=== PATIENT | female | born 1940 | race American Indian/Alaskan Native ===

== ENCOUNTER 2019-02-15 19:31 | Emergency (ER) | payer MEDICARE ==
[2019-02-15] MEDS ORDERED: GEODON IM ONE ×3 (21:14→21:31)
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
[2019-02-15 21:58] LABS: Basophils # (Auto) 0.1 K/mm3 (0.0-0.1); Eosinophils % (Auto) 0.4 % (0.0-4.3); Hematocrit 36.5 % (30.3-42.9); Hemoglobin 11.9 gm/dl (10.1-14.3); Lymphocytes # (Auto) 2.5 K/mm3 (1.2-5.4); Lymphocytes % (Auto) 23.8 % (13.4-35.0); Mean Corpuscular HGB Conc 33 % (30-34); Mean Corpuscular Volume 96 fl (79-97); Monocytes # (Auto) 0.5 K/mm3 (0.0-0.8); Monocytes % (Auto) 4.8 % (0.0-7.3); Platelet Count 217 K/mm3 (140-440); Red Blood Count 3.82 M/mm3 (3.65-5.03); Red Cell Distribution Width 15.9 % (13.2-15.2)
[2019-02-15 22:14] LABS: Alanine Aminotransferase 10 units/L (7-56); Albumin 4.1 g/dL (3.9-5); BUN/Creatinine Ratio 14; Blood Urea Nitrogen 13 mg/dL (7-17); Calcium 10.6 mg/dL (8.4-10.2); Hemolysis Index 34
[2019-02-15 22:20] LABS: Bilirubin,Direct < 0.2 mg/dL (0-0.2)
[2019-02-16] MEDS ORDERED: K-DUR PO ONE (00:03)
[2019-02-16 00:52] LABS: Bilirubin,Urine NEG (Negative); Blood,Urine NEG (Negative); Color,Urine Yellow (Yellow); Mucus,Urine FEW /HPF; Urobilinogen,Urine < 2.0 mg/dL (<2.0)
[2019-02-16 00:56] LABS: Amphetamine Screen,Urine PRESUMPTIVE NEGATIVE; Benzodiazepines Screen,Urine PRESUMPTIVE NEGATIVE; Cannabinoid Screen,Urine PRESUMPTIVE NEGATIVE; Cocaine Screen,Urine PRESUMPTIVE NEGATIVE; Methadone Screen,Urine PRESUMPTIVE NEGATIVE; Opiate Screen,Urine PRESUMPTIVE NEGATIVE
[2019-02-16 05:56] VITALS: BP 136/54
== END 2019-02-16 05:10 ==
LOC: ED 19:31 → UNDOADMIN 02-16 05:44 → 5A 02-16 05:44
DX: F03.91 Unspecified dementia, unspecified severity, with behavioral disturbance (principal); I10 Essential (primary) hypertension
CPT/HCPCS: 36415; 80048; 80076; 80307; 81001; 85025; 93005; 93010; 96372; 99285; G0480; J3486; 80320

== ENCOUNTER 2019-02-16 07:02 | Inpatient (IN) | payer MEDICARE, OTHER ==
[2019-02-16] MEDS ORDERED: BENADRYL IM PRN (08:30)
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
[2019-02-16] MEDS: ELIQUIS PO SCH (21:24)
[2019-02-16] MEDS: NAMENDA PO SCH (21:24)
[2019-02-16] MEDS ORDERED: DESYREL PO SCH (22:00)
[2019-02-16] MEDS ORDERED: NON-FORMULARY (Memantine Hcl [Namenda Xr] 28 MG) PO SCH (22:00)
[2019-02-16] MEDS ORDERED: NON-FORMULARY (Rosuvastatin Calcium [Crestor] 10 MG) PO SCH (22:00)
[2019-02-16] MEDS: DESYREL PO PRN (22:30)
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
[2019-02-16] MEDS: HALDOL IM PRN (23:26)
[2019-02-17] MEDS ORDERED: SYNTHROID PO SCH ×2 (06:00→10:05)
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
[2019-02-17] MEDS ORDERED: K-DUR PO SCH (10:00)
[2019-02-17] MEDS: CARDIZEM CD PO SCH (10:47)
[2019-02-17] MEDS: ELIQUIS PO SCH ×2 (10:47→21:05)
[2019-02-17] MEDS: NAMENDA PO SCH ×2 (10:47→21:06)
[2019-02-17] MEDS: ARICEPT PO SCH (10:48)
[2019-02-17] MEDS ORDERED: K-DUR PO ONE (13:00)
[2019-02-17] MEDS: K-DUR PO SCH ×2 (14:19→17:01)
[2019-02-17] MEDS ORDERED: MILK OF MAGNESIA PO PRN (17:51)
--- NOTE | 2019-02-17 18:01 | Progress Note ---
Subjective Date of service: 02/17/19 Principal diagnosis: dementia with aggressive behavior Subjective Comment: The patient has required 3 prn medications and an additional dose of oral Seroquel on a total of 3 occasions in the past 24 hours due to aggression. She continues to be very confused and has difficulty complying with instructions. She did well with a family visit today and was pleasant to this MD. She appeared less suspicious towards others on the unit during the evaluation today. RN/staff have noted that she is having difficulty passing a bowel movement. She pats her stomach and appears to have some pain, though she does not communicate it verbally. Objective - Criteria for Continued Treatment Criteria for Continued Treatment: Improving Level of Functioning, Improving Treatment / Medication Compliance, Stablizing Level of Functioning, Improving Emotional/Socia - Mental Status Mental Status: Alert - Objective Observation Participation Level: Minimal Reason(s) For Not Participating: Behaviors, Wandering Assessment and Plan - Patient Problems (1) Dementia with aggressive behavior Current Visit: No Status: Inactive Plan to address problem: Increase Seroquel to 100mg po Qhs, given the need for prn medication today. (2) Constipation Current Visit: Yes Status: Acute Plan to address problem: Will give PRN milk of magnesia.
[2019-02-18 08:07] LABS: BUN/Creatinine Ratio 16; Blood Urea Nitrogen 11 mg/dL (7-17); Calcium 9.9 mg/dL (8.4-10.2); Hemolysis Index 6
--- NOTE | 2019-02-18 09:00 | Progress Note ---
Subjective Date of service: 02/18/19 Principal diagnosis: dementia with aggressive behavior Subjective Comment: The patient is calm this morning, She appears sedated. Unable to communicate with me this morning. She did not sleep well last night. She was agitated requiring increased Seroquel dosing. Will focus on having patient awake during the day and sleeping through the night; calm not agitated and not sedated. Will start Melatonin to regulate sleep/wake cycle. Objective - Criteria for Continued Treatment Criteria for Continued Treatment: Improving Level of Functioning, Improving Treatment / Medication Compliance, Stablizing Level of Functioning - Mental Status Mental Status: Lethargic - Objective Observation Participation Level: None Reason(s) For Not Participating: Unable Assessment and Plan - Patient Problems (1) Alzheimer's dementia with behavioral disturbance Current Visit: Yes Status: Acute Plan to address problem: Continue inpatient psychiatric treatment, medication adjustment and close monitoring The patient's behavior, mood, sleep and appetite will be closely monitored. Patient will be enrolled in individual and group therapeutic sessions and encouraged to attend. Patient will be provided with a safe and structured environment. Patient's physical health needs will be addressed by the Hospitalist. Social Assessment will be completed and the Steam And Power Supervisor will work with patient and family to ensure a suitable and safe disposition Medication adjustment will be made as clinically indicated The patient's family agreed on the treatment plan, understood the risk, benefit, alternative treatment, potential consequence of no treatment, and gave informed consent.
[2019-02-18] MEDS: ELIQUIS PO SCH ×2 (09:41→21:34)
[2019-02-18] MEDS: CARDIZEM CD PO SCH (09:42)
[2019-02-18] MEDS: NAMENDA PO SCH ×2 (09:43→21:34)
[2019-02-18] MEDS: SYNTHROID PO SCH ×2 (09:43→09:44)
[2019-02-18] MEDS: ARICEPT PO SCH (09:43)
--- NOTE | 2019-02-18 11:53 | Event Note ---
Date: 02/18/19 Patient lab reviewed. Potassium is stable. will sign off. Please recall if We are needed.
[2019-02-18] MEDS: MELATONIN PO SCH (21:33)
[2019-02-18] MEDS: DESYREL PO PRN (21:36)
[2019-02-19] MEDS: HALDOL IM PRN (00:08)
[2019-02-19] MEDS: SYNTHROID PO SCH ×2 (05:41)
[2019-02-19] MEDS: ELIQUIS PO SCH ×2 (09:52→21:03)
[2019-02-19] MEDS: CARDIZEM CD PO SCH ×2 (09:53→10:49)
[2019-02-19] MEDS: ARICEPT PO SCH (09:53)
[2019-02-19] MEDS: NAMENDA PO SCH ×2 (09:53→21:02)
--- NOTE | 2019-02-19 16:10 | Progress Note ---
Subjective Date of service: 02/19/19 Principal diagnosis: dementia with aggressive behavior Subjective Comment: The patient continues to be excessively sedated. She is sitting in the dayroom asleep but asy to wake up. States her name only. Unable to communicate further. Will decrease Seroquel to 50mg hs. Objective - Criteria for Continued Treatment Criteria for Continued Treatment: Improving Level of Functioning, Reducing Is olative Behaviors, Stablizing Level of Functioning, Improving Emotional/Socia - Mental Status Mental Status: Lethargic - Objective Observation Participation Level: None Reason(s) For Not Participating: Unable Assessment and Plan - Patient Problems (1) Alzheimer's dementia with behavioral disturbance Current Visit: Yes Status: Acute Plan to address problem: Continue inpatient psychiatric treatment, medication adjustment and close monitoring The patient's behavior, mood, sleep and appetite will be closely monitored. Patient will be enrolled in individual and group therapeutic sessions and encouraged to attend. Patient will be provided with a safe and structured environment. Patient's physical health needs will be addressed by the Hospitalist. Social Assessment will be completed and the Manager Project Management will work with patient and family to ensure a suitable and safe disposition Medication adjustment will be made as clinically indicated The patient's family agreed on the treatment plan, understood the risk, benefit, alternative treatment, potential consequence of no treatment, and gave informed consent.
[2019-02-19] MEDS: MELATONIN PO SCH (17:14)
[2019-02-20] MEDS: SYNTHROID PO SCH ×2 (06:15→09:10)
[2019-02-20] MEDS: NAMENDA PO SCH ×2 (09:10→21:10)
[2019-02-20] MEDS: ARICEPT PO SCH (09:10)
[2019-02-20] MEDS: ELIQUIS PO SCH ×2 (09:11→21:10)
[2019-02-20] MEDS: CARDIZEM CD PO SCH (09:11)
--- NOTE | 2019-02-20 10:56 | Progress Note ---
Subjective Date of service: 02/20/19 Principal diagnosis: dementia with aggressive behavior Subjective Comment: The patient is more alert today. She is only oriented to self. She is restless, picks unseen items from her clothings, uncooperative with cares, staff feeds her. Objective - Criteria for Continued Treatment Criteria for Continued Treatment: Improving Level of Functioning, Stablizing Level of Functioning, Improving Emotional/Socia - Mental Status Mental Status: Oriented x 1 Person only - Objective Observation Participation Level: None Reason(s) For Not Participating: Unable Assessment and Plan - Patient Problems (1) Alzheimer's dementia with behavioral disturbance Current Visit: Yes Status: Acute Plan to address problem: Continue inpatient psychiatric treatment, medication adjustment and close monitoring The patient's behavior, mood, sleep and appetite will be closely monitored. Patient will be enrolled in individual and group therapeutic sessions and encouraged to attend. Patient will be provided with a safe and structured environment. Patient's physical health needs will be addressed by the Hospitalist. Social Assessment will be completed and the Grip Assembler will work with patient and family to ensure a suitable and safe disposition Medication adjustment will be made as clinically indicated The patient's family agreed on the treatment plan, understood the risk, benefit, alternative treatment, potential consequence of no treatment, and gave informed consent.
[2019-02-20] MEDS: MELATONIN PO SCH (18:33)
[2019-02-21] MEDS: SYNTHROID PO SCH ×2 (06:20)
[2019-02-21] MEDS: ARICEPT PO SCH (09:58)
[2019-02-21] MEDS: ELIQUIS PO SCH ×2 (09:58→21:20)
[2019-02-21] MEDS: NAMENDA PO SCH ×2 (09:58→21:20)
[2019-02-21] MEDS: CARDIZEM CD PO SCH (09:58)
[2019-02-21] MEDS: MELATONIN PO SCH (17:33)
--- NOTE | 2019-02-22 00:25 | Progress Note ---
Subjective Date of service: 02/21/19 Principal diagnosis: dementia with aggressive behavior Subjective Comment: The patient is alert today. She is only oriented to self. She is restless, picks unseen items from her clothings, uncooperative with cares, staff feeds her. Objective - Criteria for Continued Treatment Criteria for Continued Treatment: Improving Level of Functioning, Stablizing Level of Functioning - Mental Status Mental Status: Oriented x 1 Person only - Objective Observation Participation Level: None Reason(s) For Not Participating: Unable Assessment and Plan - Patient Problems (1) Alzheimer's dementia with behavioral disturbance Current Visit: Yes Status: Acute Plan to address problem: Continue inpatient psychiatric treatment, medication adjustment and close monitoring The patient's behavior, mood, sleep and appetite will be closely monitored. Patient will be enrolled in individual and group therapeutic sessions and encouraged to attend. Patient will be provided with a safe and structured environment. Patient's physical health needs will be addressed by the Hospitalist. Social Assessment will be completed and the Visual C Developer will work with patient and family to ensure a suitable and safe disposition Medication adjustment will be made as clinically indicated The patient's family agreed on the treatment plan, understood the risk, benefit, alternative treatment, potential consequence of no treatment, and gave informed consent.
[2019-02-22] MEDS: SYNTHROID PO SCH ×2 (06:19)
--- NOTE | 2019-02-22 08:43 | Progress Note ---
Subjective Date of service: 02/22/19 Principal diagnosis: dementia with aggressive behavior Subjective Comment: The patient received Seroquel for agitation last night. Sleeping this morning. Patient's daughter is concerned of daytime sedation. Per Nursing report: Patient slept the whole night, no aggressive behavior noted. No fall experienced by the patient during this shift. Pt. confused, hallucinating, responding to internal stimuli. Patient needs constant observation to prevent fall. Patient ate 75% of snack, took medications as ordered. Treatment aim is to have the patient awake during the daytime, calm and cooperative with cares and to sleep through the night Objective - Criteria for Continued Treatment Criteria for Continued Treatment: Improving Level of Functioning, Stablizing Level of Functioning - Mental Status Mental Status: Oriented x 1 Person only - Objective Observation Participation Level: Minimal Reason(s) For Not Participating: Unable Assessment and Plan - Patient Problems (1) Alzheimer's dementia with behavioral disturbance Current Visit: Yes Status: Acute Plan to address problem: Continue inpatient psychiatric treatment, medication adjustment and close monitoring The patient's behavior, mood, sleep and appetite will be closely monitored. Patient will be enrolled in individual and group therapeutic sessions and encouraged to attend. Patient will be provided with a safe and structured environment. Patient's physical health needs will be addressed by the Hospitalist. Social Assessment will be completed and the Compound Filler will work with patient and family to ensure a suitable and safe disposition Medication adjustment will be made as clinically indicated Melatonin decreased to 5mg qpm The patient's family agreed on the treatment plan, understood the risk, benefit, alternative treatment, potential consequence of no treatment, and gave informed consent.
[2019-02-22] MEDS: NAMENDA PO SCH ×2 (11:23→21:11)
[2019-02-22] MEDS: ARICEPT PO SCH (11:23)
[2019-02-22] MEDS: CARDIZEM CD PO SCH (11:24)
[2019-02-22] MEDS: ELIQUIS PO SCH ×2 (11:24→21:11)
[2019-02-22] MEDS: MELATONIN PO SCH (17:27)
[2019-02-23] MEDS: ARICEPT PO SCH (09:47)
[2019-02-23] MEDS: ELIQUIS PO SCH ×2 (09:47→21:05)
[2019-02-23] MEDS: NAMENDA PO SCH ×2 (09:48→21:05)
[2019-02-23] MEDS: CARDIZEM CD PO SCH (09:48)
--- NOTE | 2019-02-23 10:44 | Progress Note ---
Subjective Date of service: 02/23/19 Principal diagnosis: dementia with aggressive behavior Subjective Comment: The patient is improved. She is alert and calm this morning. She slept well last night and dietary intake is good. She is more cooperative with cares. Will discharge patient tomorrow if she continues to do well. Objective - Criteria for Continued Treatment Criteria for Continued Treatment: Improving Level of Functioning, Improving Treatment / Medication Compliance, Stablizing Level of Functioning, Improving Emotional/Socia - Mental Status Mental Status: Oriented x 1 Person only - Objective Observation Participation Level: Minimal Reason(s) For Not Participating: Unable Assessment and Plan - Patient Problems (1) Alzheimer's dementia with behavioral disturbance Current Visit: Yes Status: Acute Plan to address problem: Continue inpatient psychiatric treatment, medication adjustment and close monitoring The patient's behavior, mood, sleep and appetite will be closely monitored. Patient will be enrolled in individual and group therapeutic sessions and encouraged to attend. Patient will be provided with a safe and structured environment. Patient's physical health needs will be addressed by the Hospitalist. Social Assessment will be completed and the Tree Driller will work with patient and family to ensure a suitable and safe disposition Medication adjustment will be made as clinically indicated The patient's family agreed on the treatment plan, understood the risk, benefit, alternative treatment, potential consequence of no treatment, and gave informed consent.
[2019-02-23] MEDS: SYNTHROID PO SCH ×2 (11:33)
[2019-02-23] MEDS: MELATONIN PO SCH (17:59)
[2019-02-24] MEDS: SYNTHROID PO SCH ×2 (05:59)
[2019-02-24 09:48] VITALS: BP 130/62
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
[2019-02-24] MEDS: CARDIZEM CD PO SCH (10:08)
[2019-02-24] MEDS: ARICEPT PO SCH (10:09)
[2019-02-24] MEDS: ELIQUIS PO SCH (10:09)
[2019-02-24] MEDS: NAMENDA PO SCH (10:09)
== END 2019-02-24 12:00 | disposition short-term general hospital (02) | DRG 57 ==
LOC: 5A 07:02
PROVIDERS: ADMIT Psychiatry & Neurology Psychiatry; ATTEND Psychiatry & Neurology Psychiatry
DX: G30.9 Alzheimer's disease, unspecified (principal); F02.81 Dementia in other diseases classified elsewhere, unspecified severity, with behavioral disturbance; D68.59 Other primary thrombophilia; F41.9 Anxiety disorder, unspecified; E03.9 Hypothyroidism, unspecified; F32.9 Major depressive disorder, single episode, unspecified; I48.91 Unspecified atrial fibrillation; I10 Essential (primary) hypertension; R94.31 Abnormal electrocardiogram [ECG] [EKG]; E78.5 Hyperlipidemia, unspecified; E87.6 Hypokalemia; K59.00 Constipation, unspecified; Z82.49 Family history of ischemic heart disease and other diseases of the circulatory system; Z82.3 Family history of stroke; Z79.899 Other long term (current) drug therapy
CPT/HCPCS: 36415; 80048; 83735; 84100; 84132; 84436; 84439; 84443; 84481; G0378; A9270-GY; J1200; J1630

== ENCOUNTER 2019-05-11 18:45 | Emergency (ER) | payer MEDICARE, OTHER | END 2019-05-11 19:00 | disposition left against medical advice (07) | LOC: ED 18:45 | DX: F99 Mental disorder, not otherwise specified (principal); Z53.21 Procedure and treatment not carried out due to patient leaving prior to being seen by health care provider ==

== ENCOUNTER 2019-05-11 19:31 | Inpatient (IN) | payer MEDICARE, OTHER ==
[2019-05-11] MEDS ORDERED: HALDOL IM PRN (21:30)
[2019-05-11] MEDS ORDERED: NON-FORMULARY (Memantine Hcl [Namenda Xr] 28 MG) PO SCH (22:00)
[2019-05-13 14:32] LABS: Basophils # (Auto) 0.1 K/mm3 (0.0-0.1); Basophils % (Auto) 0.7 % (0.0-1.8); Eosinophils % (Auto) 0.6 % (0.0-4.3); Hematocrit 37.4 % (30.3-42.9); Hemoglobin 12.4 gm/dl (10.1-14.3); Lymphocytes # (Auto) 2.1 K/mm3 (1.2-5.4); Lymphocytes % (Auto) 28.2 % (13.4-35.0); Mean Corpuscular HGB Conc 33 % (30-34); Mean Corpuscular Volume 94 fl (79-97); Monocytes # (Auto) 0.5 K/mm3 (0.0-0.8); Monocytes % (Auto) 6.4 % (0.0-7.3); Platelet Count 201 K/mm3 (140-440); Red Blood Count 3.98 M/mm3 (3.65-5.03); Red Cell Distribution Width 15.2 % (13.2-15.2)
[2019-05-13] MEDS: CYMBALTA PO SCH (14:46)
[2019-05-13] MEDS: NAMENDA PO SCH ×2 (14:46→21:01)
[2019-05-13] MEDS: ARICEPT PO SCH (14:46)
[2019-05-13 15:01] LABS: Alanine Aminotransferase 15 units/L (7-56); Albumin 4.4 g/dL (3.9-5); BUN/Creatinine Ratio 14; Blood Urea Nitrogen 10 mg/dL (7-17); Calcium 10.6 mg/dL (8.4-10.2); Chol/HDL Ratio 2.11 %; HDL Cholesterol 89 mg/dL (40-59); Hemolysis Index 62; LDL Cholesterol,Direct 92 mg/dL (50-130)
[2019-05-13] MEDS: MELATONIN PO SCH (20:55)
[2019-05-14] MEDS: ARICEPT PO SCH ×2 (03:42→11:21)
[2019-05-14] MEDS: CYMBALTA PO SCH ×2 (03:42→11:20)
[2019-05-14] MEDS: NAMENDA PO SCH ×3 (03:43→21:14)
[2019-05-14] MEDS: MELATONIN PO SCH ×2 (03:43→18:14)
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
[2019-05-14] MEDS: ELIQUIS PO SCH (21:15)
[2019-05-14] MEDS ORDERED: NON-FORMULARY (Rosuvastatin Calcium [Crestor] 10 MG) PO SCH (22:00)
[2019-05-15] MEDS: SYNTHROID PO SCH (06:05)
[2019-05-15] MEDS: CYMBALTA PO SCH (09:59)
[2019-05-15] MEDS: CARDIZEM PO SCH (09:59)
[2019-05-15] MEDS: HCTZ PO SCH (09:59)
[2019-05-15] MEDS: NAMENDA PO SCH ×2 (10:00→21:42)
[2019-05-15] MEDS: ELIQUIS PO SCH ×2 (10:00→21:42)
[2019-05-15] MEDS ORDERED: HYDROCHLOROTHIAZIDE PO SCH (10:00)
[2019-05-15] MEDS: ARICEPT PO SCH (10:00)
[2019-05-15] MEDS: MELATONIN PO SCH (17:02)
[2019-05-15] MEDS: VISTARIL PO SCH ×2 (21:42→23:33)
[2019-05-16] MEDS: SYNTHROID PO SCH (07:56)
[2019-05-16] MEDS: ARICEPT PO SCH (11:48)
[2019-05-16] MEDS: CYMBALTA PO SCH (11:49)
[2019-05-16] MEDS: CARDIZEM PO SCH (11:49)
[2019-05-16] MEDS: VISTARIL PO SCH ×2 (11:50→21:55)
[2019-05-16] MEDS: NAMENDA PO SCH ×2 (11:50→21:55)
[2019-05-16] MEDS: HCTZ PO SCH (11:51)
[2019-05-16] MEDS: ELIQUIS PO SCH ×2 (11:51→21:55)
[2019-05-16] MEDS: MELATONIN PO SCH (18:17)
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
[2019-05-17] MEDS: SYNTHROID PO SCH (06:50)
--- NOTE | 2019-05-17 08:11 | Progress Note ---
Subjective Date of service: 05/17/19 Principal diagnosis: Dementia with behavioral disturbance Subjective Comment: Patient is calm and no aggression over the last 24 hours per Nursing staff report. She is eating and sleeping well. She is compliant with medications with no reported or observed side effects. No suicidal gestures. Objective - Criteria for Continued Treatment Criteria for Continued Treatment: Improving Level of Functioning, Stablizing Level of Functioning, Improving Emotional/Socia, Decreasing Frequency of Hospitalization - Mental Status Mental Status: Oriented x 1 Person only - Objective Observation Participation Level: Minimal Assessment and Plan - Patient Problems (1) Alzheimer's dementia with behavioral disturbance Current Visit: No Status: Acute Plan to address problem: Patient will be admitted for inpatient psychiatric evaluation, medication adjustment and close monitoring The patient's behavior, mood, sleep and appetite will be closely monitored. Patient will be enrolled in individual and group therapeutic sessions and encouraged to attend. Patient will be provided with a safe and structured environment. Patient's physical health needs will be addressed by the Hospitalist. Social Assessment will be completed and the Nuclear Physicist will work with patient and family to ensure a suitable and safe disposition Medication adjustment will be made as clinically indicated Will continue Seroquel 25mg tid (increase 05/17) Will consider adding Depakote if she continues to be agitated.
[2019-05-17] MEDS: CYMBALTA PO SCH (11:24)
[2019-05-17] MEDS: HCTZ PO SCH (11:24)
[2019-05-17] MEDS: ELIQUIS PO SCH ×2 (11:25→21:05)
[2019-05-17] MEDS: CARDIZEM PO SCH (11:25)
[2019-05-17] MEDS: ARICEPT PO SCH (11:25)
[2019-05-17] MEDS: VISTARIL PO SCH ×2 (11:28→21:05)
[2019-05-17] MEDS: NAMENDA PO SCH ×2 (11:31→21:05)
[2019-05-17] MEDS: MELATONIN PO SCH (18:52)
[2019-05-17] MEDS ORDERED: MELATONIN PO PRN (21:07)
[2019-05-18] MEDS: SYNTHROID PO SCH (06:18)
--- NOTE | 2019-05-18 08:22 | Progress Note ---
Subjective Date of service: 05/18/19 Principal diagnosis: Dementia with behavioral disturbance Subjective Comment: Patient is only combative with cares per Nursing staff report. No unprovoked aggression towards staffs/patients. She is eating and sleeping well. She is compliant with medications with no reported or observed side effects. No suicidal gestures. Objective - Criteria for Continued Treatment Criteria for Continued Treatment: Improving Level of Functioning, Stablizing Level of Functioning, Improving Emotional/Socia - Mental Status Mental Status: Oriented x 1 Person only - Objective Observation Participation Level: Minimal Assessment and Plan - Patient Problems (1) Alzheimer's dementia with behavioral disturbance Current Visit: No Status: Acute Plan to address problem: Patient will be admitted for inpatient psychiatric evaluation, medication adjustment and close monitoring The patient's behavior, mood, sleep and appetite will be closely monitored. Patient will be enrolled in individual and group therapeutic sessions and encouraged to attend. Patient will be provided with a safe and structured environment. Patient's physical health needs will be addressed by the Hospitalist. Social Assessment will be completed and the Manager Operations Research will work with patient and family to ensure a suitable and safe disposition Medication adjustment will be made as clinically indicated Will continue Seroquel 25mg tid (increased 05/17) Melatonin 5mg qhs prn for insomnia (05/17) Will consider adding Depakote if she continues to be agitated.
[2019-05-18] MEDS: HCTZ PO SCH (10:44)
[2019-05-18] MEDS: NAMENDA PO SCH ×2 (10:45→21:17)
[2019-05-18] MEDS: ARICEPT PO SCH (10:45)
[2019-05-18] MEDS: ELIQUIS PO SCH ×2 (10:45→21:17)
[2019-05-18] MEDS: CARDIZEM PO SCH (10:46)
[2019-05-18] MEDS: CYMBALTA PO SCH (10:46)
[2019-05-18] MEDS: VISTARIL PO SCH ×2 (10:54→21:17)
[2019-05-18] MEDS: MELATONIN PO SCH (17:58)
[2019-05-19] MEDS: SYNTHROID PO SCH (06:32)
[2019-05-19] MEDS: NAMENDA PO SCH ×2 (09:29→21:17)
[2019-05-19] MEDS: ARICEPT PO SCH (09:29)
[2019-05-19] MEDS: HCTZ PO SCH (09:30)
[2019-05-19] MEDS: CARDIZEM PO SCH (09:30)
[2019-05-19] MEDS: CYMBALTA PO SCH (09:30)
[2019-05-19] MEDS: ELIQUIS PO SCH ×2 (09:31→21:17)
[2019-05-19] MEDS: VISTARIL PO SCH ×2 (09:31→21:17)
--- NOTE | 2019-05-19 16:29 | Progress Note ---
Subjective Date of service: 05/19/19 Principal diagnosis: Dementia with behavioral disturbance Subjective Comment: Patient is pacing up and down the valdes this morning. No aggression towards anyone. She is understandably combative with cares - not uncommon in patients with dementia. Nursing staffs are patiently caring for her, allows her to sleep in through the morning. No unprovoked aggression towards staffs/patients. She is eating and sleeping well. She is compliant with medications with no reported or observed side effects. No suicidal gestures. Objective - Criteria for Continued Treatment Criteria for Continued Treatment: Improving Level of Functioning, Stablizing Level of Functioning, Improving Emotional/Socia - Mental Status Mental Status: Oriented x 1 Person only - Objective Observation Participation Level: Moderate Assessment and Plan - Patient Problems (1) Alzheimer's dementia with behavioral disturbance Current Visit: No Status: Acute Plan to address problem: Patient will be admitted for inpatient psychiatric evaluation, medication adjustment and close monitoring The patient's behavior, mood, sleep and appetite will be closely monitored. Patient will be enrolled in individual and group therapeutic sessions and encouraged to attend. Patient will be provided with a safe and structured environment. Patient's physical health needs will be addressed by the Hospitalist. Social Assessment will be completed and the Bed Rubber will work with patient and family to ensure a suitable and safe disposition Medication adjustment will be made as clinically indicated Will continue Seroquel 25mg tid (increased 05/17) Melatonin 5mg qhs prn for insomnia (05/17) Will consider adding Depakote if she continues to be agitated.
[2019-05-19] MEDS: MELATONIN PO SCH (17:58)
[2019-05-19 21:05] VITALS: BP 116/64
[2019-05-20] MEDS: SYNTHROID PO SCH (06:47)
[2019-05-20] MEDS: HCTZ PO SCH (09:17)
[2019-05-20] MEDS: VISTARIL PO SCH (09:17)
[2019-05-20] MEDS: CARDIZEM PO SCH (09:17)
[2019-05-20] MEDS: NAMENDA PO SCH (09:18)
[2019-05-20] MEDS: ELIQUIS PO SCH (09:18)
[2019-05-20] MEDS: CYMBALTA PO SCH (09:18)
[2019-05-20] MEDS: ARICEPT PO SCH (09:19)
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
== END 2019-05-20 12:20 | disposition home or self-care (01) | DRG 57 ==
LOC: 5A 05-13 08:30
PROVIDERS: ADMIT Psychiatry & Neurology Psychiatry; ATTEND Psychiatry & Neurology Psychiatry
DX: G30.8 Other Alzheimer's disease (principal); F02.81 Dementia in other diseases classified elsewhere, unspecified severity, with behavioral disturbance; I10 Essential (primary) hypertension; F29 Unspecified psychosis not due to a substance or known physiological condition; I48.91 Unspecified atrial fibrillation; E78.5 Hyperlipidemia, unspecified; E03.9 Hypothyroidism, unspecified; R73.9 Hyperglycemia, unspecified; E87.6 Hypokalemia; T14.8XXA Other injury of unspecified body region, initial encounter; Z79.899 Other long term (current) drug therapy; Y93.89 Activity, other specified; Y92.89 Other specified places as the place of occurrence of the external cause; Y99.8 Other external cause status
CPT/HCPCS: 36415; 80053; 80061; 83036; 85025; G0378; A9270-GY; Q0177

== ENCOUNTER 2019-07-14 15:12 | Emergency (ER) | payer MEDICARE, OTHER ==
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
[2019-07-14 18:24] LABS: Basophils % (Auto) 0.6 % (0.0-1.8); Eosinophils % (Auto) 0.6 % (0.0-4.3); Hematocrit 39.4 % (30.3-42.9); Hemoglobin 12.9 gm/dl (10.1-14.3); Lymphocytes # (Auto) 2.5 K/mm3 (1.2-5.4); Lymphocytes % (Auto) 38.1 % (13.4-35.0); Mean Corpuscular HGB Conc 33 % (30-34); Mean Corpuscular Volume 95 fl (79-97); Monocytes # (Auto) 0.6 K/mm3 (0.0-0.8); Monocytes % (Auto) 8.4 % (0.0-7.3); Platelet Count 206 K/mm3 (140-440); Red Blood Count 4.15 M/mm3 (3.65-5.03); Red Cell Distribution Width 15.7 % (13.2-15.2)
[2019-07-14 18:32] LABS: BUN/Creatinine Ratio 20; Blood Urea Nitrogen 16 mg/dL (7-17); Calcium 9.8 mg/dL (8.4-10.2); Hemolysis Index 22
[2019-07-14 21:01] VITALS: BP 127/49
[2019-07-14] MEDS ORDERED: GEODON IM ONE (22:28)
[2019-07-14] MEDS: GEODON IM PRN (22:33)
[2019-07-15 00:29] LABS: Bilirubin,Urine NEG (Negative); Blood,Urine NEG (Negative); Color,Urine Yellow (Yellow); Protein,Urine <15 mg/dL mg/dL (Negative); Urobilinogen,Urine < 2.0 mg/dL (<2.0)
[2019-07-15 00:36] LABS: Amphetamine Screen,Urine PRESUMPTIVE NEGATIVE; Benzodiazepines Screen,Urine PRESUMPTIVE NEGATIVE; Cocaine Screen,Urine PRESUMPTIVE NEGATIVE; Methadone Screen,Urine PRESUMPTIVE NEGATIVE; Opiate Screen,Urine PRESUMPTIVE NEGATIVE
[2019-07-15 01:09] LABS: Cannabinoid Screen,Urine PRESUMPTIVE POSITIVE
[2019-07-15] MEDS ORDERED: WATER FOR INJ Sterile (PF) 10 ML ONE (09:22)
[2019-07-15] MEDS: GEODON IM PRN (09:33)
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
== END 2019-07-15 11:09 | disposition other institution (70) ==
LOC: ED 15:12
DX: G30.9 Alzheimer's disease, unspecified (principal); F91.1 Conduct disorder, childhood-onset type; I10 Essential (primary) hypertension; M19.90 Unspecified osteoarthritis, unspecified site; F32.9 Major depressive disorder, single episode, unspecified; E03.9 Hypothyroidism, unspecified; I48.91 Unspecified atrial fibrillation; I25.10 Atherosclerotic heart disease of native coronary artery without angina pectoris; E78.5 Hyperlipidemia, unspecified; Z79.899 Other long term (current) drug therapy
CPT/HCPCS: 36415; 80048; 80307; 81001; 85025; 96372; 99285; J3486; 80320; G0480